=== PATIENT | female | born 1980 | race African-American/Black ===

== ENCOUNTER 2022-02-11 20:45 | Emergency (ER) | payer BC, OTHER ==
[2022-02-11] MEDS ORDERED: traMADol HCl 50 MG TAB ONE (22:05)
[2022-02-11] MEDS ORDERED: Ketorolac Tromethamine 10 MG TAB PO SCH (22:45)
== END 2022-02-11 22:11 | disposition home or self-care (01) ==
LOC: CSHERS 20:45
DX: S93.402A Sprain of unspecified ligament of left ankle, initial encounter (principal); X50.1XXA Overexertion from prolonged static or awkward postures, initial encounter
CPT/HCPCS: 29515